=== PATIENT | female | born 1970 | race Caucasian/White ===

== ENCOUNTER 2017-05-05 11:10 | Emergency (ER) | payer BC ==
[2017-05-05] MEDS ORDERED: Dexamethasone 10 MG/ML VIAL ONE (12:40)
--- NOTE | 2017-05-05 12:57 | CT ---
CT HEAD NONCONTRAST: CLINICAL HISTORY: Head injury. Trauma. COMPARISON: Reference made to a 01/17/2016 brain MRI. FINDINGS: The ventricular system is normal in size. The septum pellucidum and third ventricle are midline. No intracranial hemorrhage, mass effect, or midline shift. The calvarium is intact. IMPRESSION: 1. No acute intracranial abnormalities. 2. Incidental note of pineal cyst, grossly stable, given differentials in imaging modalities to nataliia morales brain MRI of 01/07/2016. POS: PHIL
[2017-05-05] MEDS ORDERED: Metoclopramide HCl 10 MG/2 ML VIAL ONE (13:08)
[2017-05-05] MEDS ORDERED: Ketorolac Tromethamine 30 MG/ML VIAL ONE (13:08)
== END 2017-05-05 13:54 | disposition home or self-care (01) ==
LOC: ERS 11:10
DX: S06.0X0A Concussion without loss of consciousness, initial encounter (principal); G43.909 Migraine, unspecified, not intractable, without status migrainosus; F31.9 Bipolar disorder, unspecified; F41.9 Anxiety disorder, unspecified; X58.XXXA Exposure to other specified factors, initial encounter
CPT/HCPCS: 70450; 96365; 96375; J1100; J1885; J2765

== ENCOUNTER 2017-11-26 15:59 | Outpatient (CLI) | payer BC | END 2017-11-26 16:00 | disposition home or self-care (01) | LOC: BICMAMMO 15:59 | PROVIDERS: ATTEND Physician Assistant | DX: Z12.31 Encounter for screening mammogram for malignant neoplasm of breast (principal); N64.89 Other specified disorders of breast; Z80.3 Family history of malignant neoplasm of breast | CPT/HCPCS: 77063; 77067 ==

== ENCOUNTER 2018-09-19 16:18 | Outpatient (CLI) | payer BC ==
--- NOTE | 2018-09-19 17:25 | RAD ---
CERVICAL SPINE FOUR VIEWS INCLUDING FLEXION AND EXTENSION LATERAL VIEWS: History: Spondylosis of cervical region. FINDINGS: Multilevel disc osteophytosis and facet arthrosis, most marked at C5-6 with disc space narrowing. No evidence for abnormal anterior or retrolisthesis or abnormal translation between flexion and extensio n. No significant prevertebral soft tissue swelling. IMPRESSION: Cervical spondylosis most marked at C5-6. No abnormal translation. POS: TPC
== END 2018-09-19 16:19 | disposition home or self-care (01) ==
LOC: BICRAD 16:18
PROVIDERS: ATTEND Specialist
DX: M47.812 Spondylosis without myelopathy or radiculopathy, cervical region (principal)
CPT/HCPCS: 72050

== ENCOUNTER 2018-09-30 14:56 | Outpatient (CLI) | payer BC ==
--- NOTE | 2018-09-30 17:09 | MRI ---
MRI CERVICAL SPINE WITHOUT CONTRAST: 09/30/18 INDICATION: History of neck pain. COMPARISON: Cervical spine radiographs dated 09/19/18. FINDINGS: Bone marrow signal intensity appears within normal limits. There is very slight anterior translation of C3 on C4. The visualized posterior fossa is unremarkable appearing. Prevertebral soft tissues are normal appearing. Craniocervical junction appears within normal limits. At C2-3, there is moderate right and mild left facet joint degenerative change but no appreciable haseeb tral canal or neural foraminal narrowing. At C3-4, there is a broad based bulge with facet hypertrophy and uncovertebral hypertrophy producing mild left neural foraminal narrowing. At C4-5, there is facet hypertrophy but no appreciable central canal or neural foraminal narrowing. At C5-6, there is a broad based disc bulge causing mild ventral effacement of the spinal cord. There is uncovertebral hypertrophy greater on the right inducing moderate right and mild left neural forami nal narrowing. At C6-7, there is a broad based bulge causing mild ventral effacement of the subarachnoid space. Ther e is uncovertebral hypertrophy and facet joint degenerative changes inducing mild bilateral neural fo raminal narrowing. At C7-T1, there is no appreciable central canal or neural foraminal narrowing. IMPRESSION: 1. Mild to moderate central canal narrowing at C5-6 with mild ventral effacement of the subarach noid space due to a broad based disc bulge. There is moderate right and mild left neural foraminal na rrowing. 2. Mild bilateral neural foraminal narrowing at C6-7. 3. Mild left neural foraminal narrowing at C3-4. POS: CET
== END 2018-09-30 14:57 | disposition home or self-care (01) ==
LOC: SCSMRI 14:56
PROVIDERS: ATTEND Specialist
DX: M43.12 Spondylolisthesis, cervical region (principal); M50.122 Cervical disc disorder at C5-C6 level with radiculopathy; M48.02 Spinal stenosis, cervical region
CPT/HCPCS: 72141

== ENCOUNTER 2019-12-28 13:44 | Outpatient (CLI) | payer BC ==
--- NOTE | 2019-12-28 16:01 | MMO ---
Bilateral MAMMO Bilat Screen [facility]. CLINICAL HISTORY: Patient is 49 years old and is seen for screening. The patient has the following family history of breast cancer: mother, at age 62. The patient has no personal history of cancer. VIEWS: The views performed were: bilateral craniocaudal with tomosynthesis and bilateral mediolateral oblique with tomosynthesis. FILMS COMPARED: The present examination has been compared to prior imaging studies performed at [facility] on 11/07/2012, 09/27/2015 and 11/26/2017, and at [facility] on 09/20/2008. This study has been interpreted with the assistance of computer-aided detection. MAMMOGRAM FINDINGS: There are scattered fibroglandular densities. Finding 1: There are stable benign appearing calcifications seen in both breasts. Finding 2: There is a new oval mass measuring 9 x 11 x 13 mm with circumscribed margins seen in the right breast. IMPRESSION: FINDING 1: STABLE CALCIFICATIONS IN BOTH BREASTS ARE BENIGN. FINDING 2: NEW MASS IN THE RIGHT BREAST REQUIRES ADDITIONAL EVALUATION. ADDITIONAL PROJECTIONS (RIGHT CRANIOCAUDAL SPOT COMPRESSION; RIGHT MEDIOLATERAL OBLIQUE SPOT COMPRESSION; AND RIGHT MEDIOLATERAL) ARE RECOMMENDED. AN ULTRASOUND EXAM IS RECOMMENDED. ADDITIONAL IMAGING. THE RESULTS OF THIS EXAM WERE SENT TO THE PATIENT. ACR BI-RADS Category 0 - Incomplete: Need additional imaging evaluation. [facility] will notify the patient of the need for additional imaging services. MAMMOGRAPHY NOTE: 1. A negative mammogram report should not delay a biopsy if a dominant of clinically suspicious mass is present. 2. Approximately 10% to 15% of breast cancers are not detected by mammography. 3. Adenosis and dense breasts may obscure an underlying neoplasm. Reported by: JUAN BECKMAN MD Electonically Signed: [id number]
== END 2019-12-28 13:45 | disposition home or self-care (01) ==
LOC: BICMAMMO 13:44
PROVIDERS: ATTEND Family Medicine
DX: Z12.31 Encounter for screening mammogram for malignant neoplasm of breast (principal); Z80.3 Family history of malignant neoplasm of breast; R92.1 Mammographic calcification found on diagnostic imaging of breast; N63.10 Unspecified lump in the right breast, unspecified quadrant
CPT/HCPCS: 77063; 77067

== ENCOUNTER 2020-01-02 12:42 | Outpatient (CLI) | payer BC ==
--- NOTE | 2020-01-02 13:48 | MMO ---
Right Breast MAMMO Unilat Diag [facility]. CLINICAL HISTORY: Patient is 49 years old and is seen for additional evaluation requested from prior study. The patient has the following family history of breast cancer: mother, at age 62. The patient has no personal history of cancer. VIEWS: The views performed were: right craniocaudal spot compression with tomosynthesis; right mediolateral oblique spot compression with tomosynthesis; and right mediolateral with tomosynthesis. FILMS COMPARED: The present examination has been compared to prior imaging studies performed at [facility] on 09/27/2015, 11/26/2017, 12/28/2019 and 01/02/2020. This study has been interpreted with the assistance of computer-aided detection. MAMMOGRAM FINDINGS: There are scattered fibroglandular densities. There is an oval mass measuring 9 x 11 x 12 mm with microlobulated margins seen in the right breast. solid on ultrasound IMPRESSION: MASS IN THE RIGHT BREAST IS PROBABLY BENIGN. FOLLOW-UP IN 6 MONTHS IS RECOMMENDED. THE RESULTS OF THIS EXAM WERE SENT TO THE PATIENT. ACR BI-RADS Category 3 - Probably benign finding - short interval follow-up suggested. [facility] will notify the patient of the need for additional imaging services. MAMMOGRAPHY NOTE: 1. A negative mammogram report should not delay a biopsy if a dominant of clinically suspicious mass is present. 2. Approximately 10% to 15% of breast cancers are not detected by mammography. 3. Adenosis and dense breasts may obscure an underlying neoplasm. Reported by: JUAN BECKMAN MD Electonically Signed: [id number]
--- NOTE | 2020-01-02 14:33 | ULT ---
EXAM: RIGHT BREAST ULTRASOUND: 01/02/20 HISTORY: Patient presents for additional views of the right breast and right breast ultrasound to evaluate a m ass in the right breast. The right breast is evaluated in the 12 o'clock position to evaluate a slightly microlobulated mass s een in the 12 o'clock position of the right breast deep within the breast. At 12 o'clock 3 cm from the nipple in the posterior aspect of the right breast there is a circumscrib ed hypoechoic oval mass measuring 0.6 x 1.3 x 1.2 cm in size which I feel probably corresponds to the abnormal mammographic finding. This could represent a fibroadenoma. There is no evidence for microca lcifications or spiculation or shadowing in this region of the breast. IMPRESSION: BIRADS 3: Probably Benign Finding Initial Short-Interval Follow-Up Suggested Initial short-term follow up (usually 6-month) examination. Six month follow-up right unilateral diagnostic mammogram and right breast ultrasound is recommended for further assessment. Findings were discussed with the patient who was in agreement with proceeding to six month follow-up short term surveillance. POS: OFF
== END 2020-01-02 12:43 | disposition home or self-care (01) ==
LOC: BICMAMMO 12:42
PROVIDERS: ATTEND Family Medicine
DX: N63.10 Unspecified lump in the right breast, unspecified quadrant (principal)
CPT/HCPCS: G0279

== ENCOUNTER 2020-02-23 19:00 | Outpatient (CLI) | payer BC | END 2020-02-23 19:01 | disposition home or self-care (01) | LOC: SLEEPLAB 19:00 | PROVIDERS: ATTEND Family Medicine | DX: G47.33 Obstructive sleep apnea (adult) (pediatric) (principal); R53.83 Other fatigue; R06.83 Snoring; F41.9 Anxiety disorder, unspecified; G47.00 Insomnia, unspecified; G47.10 Hypersomnia, unspecified; F31.9 Bipolar disorder, unspecified; E66.9 Obesity, unspecified; Z68.41 Body mass index [BMI] 40.0-44.9, adult | CPT/HCPCS: 95810 ==

== ENCOUNTER 2020-04-07 19:00 | Outpatient (CLI) | payer BC | END 2020-04-07 19:01 | disposition home or self-care (01) | LOC: SLEEPLAB 19:00 | PROVIDERS: ATTEND Family Medicine | DX: G47.33 Obstructive sleep apnea (adult) (pediatric) (principal); R06.83 Snoring; R53.83 Other fatigue; E66.9 Obesity, unspecified; F41.9 Anxiety disorder, unspecified | CPT/HCPCS: 95811 ==

== ENCOUNTER 2023-03-30 09:24 | Outpatient (CLI) | payer BC | END 2023-03-30 09:25 | disposition home or self-care (01) | LOC: BICMAMMO 09:24 | PROVIDERS: ATTEND Family Medicine | DX: N63.15 Unspecified lump in the right breast, overlapping quadrants (principal) | CPT/HCPCS: 77066; G0279 ==

== ENCOUNTER 2023-04-23 13:58 | Emergency (ER) | payer BC, OTHER ==
[2023-04-23] MEDS ORDERED: HYDROcodone/Acetaminophen 10/325 mg Tablet ONE (15:00)
== END 2023-04-23 16:10 | disposition home or self-care (01) ==
LOC: ERS 13:58
DX: S16.1XXA Strain of muscle, fascia and tendon at neck level, initial encounter (principal); G43.909 Migraine, unspecified, not intractable, without status migrainosus; Z79.899 Other long term (current) drug therapy; V89.2XXA Person injured in unspecified motor-vehicle accident, traffic, initial encounter
CPT/HCPCS: 72125

== ENCOUNTER 2023-06-02 05:37 | Day surgery (SDC) | payer BC ==
[2023-05-31 13:16] VITALS: BMI 52.4
[2023-06-02] MEDS ORDERED: PROPOFOL 20 ML ONE ×3 (07:00→07:01)
[2023-06-02] MEDS ORDERED: Lidocaine 1% PF 5 ML VIAL ONE (07:56)
[2023-06-02] MEDS ORDERED: Midazolam HCl 2 mg/2 ml Vial ONE (07:57)
== END 2023-06-02 09:38 | disposition home or self-care (01) ==
LOC: SDC 05:37
PROVIDERS: ATTEND Internal Medicine
DX: Z12.11 Encounter for screening for malignant neoplasm of colon (principal); D12.2 Benign neoplasm of ascending colon; D12.3 Benign neoplasm of transverse colon; K64.8 Other hemorrhoids; E78.00 Pure hypercholesterolemia, unspecified; F41.9 Anxiety disorder, unspecified; F32.A Depression, unspecified; Z88.0 Allergy status to penicillin; Z91.040 Latex allergy status; Z91.048 Other nonmedicinal substance allergy status; Z79.899 Other long term (current) drug therapy
CPT/HCPCS: 88305; J2250; J2704

== ENCOUNTER 2023-10-18 14:52 | Outpatient (CLI) | payer BC | END 2023-10-18 14:53 | disposition home or self-care (01) | LOC: SCSMRI 14:52 | PROVIDERS: ATTEND Psychiatry & Neurology Neurology | DX: D33.3 Benign neoplasm of cranial nerves (principal); H61.891 Other specified disorders of right external ear | CPT/HCPCS: 70553 ==